=== PATIENT | female | born 1960 | race Caucasian/White ===

== ENCOUNTER 2016-06-10 18:07 | Emergency (ER) | payer BC ==
--- NOTE | 2016-06-10 19:26 | ER Document Report ---
ED Medical Screen (RME) - General Stated Complaint: DIFFICULTY BREATHING Information source: Patient Notes: Patient reports cold symptoms for the past week. Patient reports hot and cold chills. Patient complains of muscle cramping to left lower extremity. No fever. Nonproductive cough. hx: Diabetes, hypertension I have greeted and performed a rapid initial assessment of this patient. A comprehensive ED assessment and evaluation of the patient, analysis of test results and completion of the medical decision making process will be conducted by additional ED providers. TRAVEL OUTSIDE OF THE [place] IN LAST 30 DAYS: No - Related Data Allergies/Adverse Reactions: No Known Allergies Allergy (Verified 11/08/13 21:58) Past Medical History - Past Medical History Cardiac Medical History: Reports: Hx Hypertension Denies: Hx Coronary Artery Disease, Hx Heart Attack Pulmonary Medical History: Denies: Hx Asthma, Hx Bronchitis, Hx COPD, Hx Pneumonia Neurological Medical History: Denies: Hx Cerebrovascular Accident, Hx Seizures Endocrine Medical History: Reports: Hx Diabetes Mellitus Type 2 Musculoskeltal Medical History: Denies Hx Arthritis Past Surgical History: Reports: Hx Section, Hx Cholecystectomy, Hx Hysterectomy. Denies: Hx Pacemaker - Immunizations Hx Diphtheria, Pertussis, Tetanus Vaccination: Yes Physical Exam - Vital signs Vitals: Temp Pulse Resp BP Pulse Ox 97.7 F 99 16 148/77 H 95 06/10/16 19:12 06/10/16 19:12 06/10/16 19:12 06/10/16 19:12 06/10/16 19:12 - Respiratory Respiratory status: No respiratory distress Breath sounds: Nonproductive cough Course - Vital Signs Vital signs: Temp Pulse Resp BP Pulse Ox 97.7 F 99 16 148/77 H 95 06/10/16 19:12 06/10/16 19:12 06/10/16 19:12 06/10/16 19:12 06/10/16 19:12
[2016-06-10] MEDS ORDERED: ASPIRIN 81 MG TABLET, CHEWABLE PO ONE (19:27)
[2016-06-10 20:26] LABS: ABSOLUTE EOSINOPHILS # (AUTO) 0.3 10^3/uL (0.0-0.6); ABSOLUTE LYMPHOCYTES (AUTO) 3.7 10^3/uL (0.5-4.7); ABSOLUTE MONOCYTES (AUTO) 0.7 10^3/uL (0.1-1.4); ABSOLUTE NEUT (AUTO) 4.4 10^3/uL (1.7-8.2); BASOPHILS % (AUTO) 0.4 % (0-2); EOSINOPHILS % (AUTO) 3.3 % (0-6); HEMATOCRIT 42.2 % (36.0-47.0); HGB HCT DIFFERENCE -0.2; LYMPHOCYTES % (AUTO) 40.4 % (13-45); MEAN CORPUSCULAR HEMOGLOBIN 29.9 pg (27.0-33.4); MEAN CORPUSCULAR HGB CONC 33.1 g/dL (32.0-36.0); MEAN CORPUSCULAR VOLUME 90 fl (80-97); MONOCYTES % (AUTO) 8.1 % (3-13); RED BLOOD COUNT 4.66 10^6/uL (3.72-5.28); RED CELL DISTRIBUTION WIDTH 13.4 % (11.5-14.0); SEGMENTED NEUTROPHILS % (AUTO) 47.8 % (42-78); WHITE BLOOD COUNT 9.1 10^3/uL (4.0-10.5)
[2016-06-10 20:31] LABS: APPEARANCE,URINE SLIGHTLY-CLOUDY; BILIRUBIN,URINE NEGATIVE (NEGATIVE); GLUCOSE, URINE >=500 mg/dL (NEGATIVE); KETONES,URINE NEGATIVE (NEGATIVE); LEUKOCYTE ESTERASE,URINE TRACE (NEGATIVE); NITRITE,URINE POSITIVE (NEGATIVE); PROTEIN,URINE NEGATIVE (NEGATIVE); URINE SPECIFIC GRAVITY 1.022; UROBILINOGEN,URINE NEGATIVE mg/dL (<2.0)
[2016-06-10 20:42] LABS: ALANINE AMINOTRANSFERASE 42 U/L (9-52); ALBUMIN 4.1 g/dL (3.5-5.0); ALKALINE PHOSPHATASE 105 U/L (38-126); ANION GAP 12 (5-19); ASPARTATE AMINO TRANSFERASE 24 U/L (14-36); BILIRUBIN,TOTAL 0.5 mg/dL (0.2-1.3); BLOOD UREA NITROGEN 19 mg/dL (7-20); CALCIUM 10.8 mg/dL (8.4-10.2); CARBON DIOXIDE 28 mmol/L (22-30); CHLORIDE 100 mmol/L (98-107); CREATINE KINASE 184 U/L (30-135); GLUCOSE 247 mg/dL (75-110); MAGNESIUM 1.6 mg/dL (1.6-2.3); POTASSIUM 4.4 mmol/L (3.6-5.0); SODIUM 140.3 mmol/L (137-145); TOTAL PROTEIN 7.5 g/dL (6.3-8.2)
[2016-06-10 20:54] LABS: CREATINE KINASE MB 3.33 ng/mL (<4.55); TROPONIN I < 0.012 ng/mL
--- NOTE | 2016-06-10 23:58 | ER Document Report ---
ED General - General Mode of Arrival: Ambulatory Information source: Patient TRAVEL OUTSIDE OF THE [place] IN LAST 30 DAYS: No - HPI Patient complains to provider of: Leg Cramping Onset: Other - approximately 3 days ago Onset/Duration: Sudden, Intermittent Quality of pain: Cramping Associated symptoms: Nonproductive cough <BERNA POWELL - Last Filed: 06/11/16 01:31> <BHAVIK CHURCHILL - Last Filed: 06/11/16 04:35> - General Chief Complaint: Leg Pain Stated Complaint: DIFFICULTY BREATHING Notes: Patient is a 55 y/o diabetic female presenting to the emergency department concerned of intermittent bilateral leg cramping onset approximately 3 days ago. Patient states the cramping is in her thigh and calf of her left leg, and just the calf in her right leg. 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 Patient denies any urinary symptoms or any new activity. Patient believes that she has been drinking enough fluids. (BERNA POWELL) - Related Data Allergies/Adverse Reactions: No Known Allergies Allergy (Verified 11/08/13 21:58) Past Medical History - General Information source: Patient - Social History Smoking Status: Unknown if Ever Smoked Lives with: Spouse/Significant other Family History: Reviewed & Not Pertinent Patient has suicidal ideation: No Patient has homicidal ideation: No - Past Medical History Cardiac Medical History: Reports: Hx Hypertension Endocrine Medical History: Reports: Hx Diabetes Mellitus Type 2 Past Surgical History: Reports: Hx Section, Hx Cholecystectomy, Hx Hysterectomy - Immunizations Hx Diphtheria, Pertussis, Tetanus Vaccination: Yes <BERNA POWELL - Last Filed: 06/11/16 01:31> Review of Systems - Review of Systems Constitutional: No symptoms reported EENT: No symptoms reported Cardiovascular: No symptoms reported Respiratory: No symptoms reported Gastrointestinal: No symptoms reported Genitourinary: No symptoms reported Female Genitourinary: No symptoms reported Musculoskeletal: See HPI, Other - Cramping in legs bilaterally. Skin: No symptoms reported Hematologic/Lymphatic: No symptoms reported Neurological/Psychological: No symptoms reported -: Yes All other systems reviewed and negative <BERNA POWELL - Last Filed: 06/11/16 01:31> Physical Exam - General General appearance: Alert - HEENT Head: Normocephalic, Atraumatic Eyes: Normal Pupils: PERRL - Respiratory Respiratory status: No respiratory distress Chest status: Nontender Breath sounds: Normal Chest palpation: Normal - Cardiovascular Rhythm: Regular Heart sounds: Normal auscultation Murmur: No - Abdominal Inspection: Obese Distension: No distension Bowel sounds: Normal Tenderness: Nontender Organomegaly: No organomegaly - Back Back: Normal, Nontender - Extremities General upper extremity: Normal inspection, Nontender, Normal color, Normal ROM , Normal temperature General lower extremity: Tender - Tenderness to palpation over upper posterior left calf and medial left proximal thigh., Normal ROM. No: Edema - Neurological Neuro grossly intact: Yes Cognition: Normal [place] Coma Scale Eye Opening: Spontaneous [place] Coma Scale Verbal: Oriented [place] Coma Scale Motor: Obeys Commands [place] Coma Scale Total: 15 Speech: Normal - Psychological Associated symptoms: Normal affect, Normal mood - Skin Skin Temperature: Warm Skin Moisture: Dry Skin Color: Normal <BERNA POWELL - Last Filed: 06/11/16 01:31> Course - Laboratory Result Diagrams: 06/10/16 19:30 06/10/16 19:30 <BERNA POWELL - Last Filed: 06/11/16 01:31> - Laboratory Result Diagrams: 06/10/16 19:30 06/10/16 19:30 - Diagnostic Test Radiology reviewed: Reports reviewed <BHAVIK CHURCHILL - Last Filed: 06/11/16 04:35> - Re-evaluation Re-evalutation: 06/10 Patient is a 55-year-old female who comes in complaining of leg pain. Patient was going to leave after being seen in triage. Asked to see the patient who states that she has had some pain in her left calf and thigh. Blood work is within normal limits. Patient denies any cough, difficulty breathing, or any other complaints. Concerning for DVT. Patient has been given a prescription for an outpatient Doppler as I cannot obtain one at this time of night. Patient will likely be sent back to the ER to be started on blood thinners if she has a DVT. Understands and agrees with this plan. Patient like to go home. She will return for her Doppler in the morning. Stable for discharge. Return immediately for any worsening or concerning symptoms. Of note, the patient does not want to be started prophylactically on blood thinners unless she really needs them. (BHAVIK CHURCHILL) - Vital Signs Vital signs: Temp Pulse Resp BP Pulse Ox 97.7 F 99 16 148/77 H 95 06/10/16 19:12 06/10/16 19:12 06/10/16 19:12 06/10/16 19:12 06/10/16 19:12 (BERNA POWELL) (BHAVIK CHURCHILL) - Laboratory Laboratory results interpreted by me: 06/10/16 06/10/16 19:30 19:35 Glucose 247 H Calcium 10.8 H Creatine Kinase 184 H Urine Glucose (UA) >=500 H Urine Nitrite POSITIVE H Ur Leukocyte Esterase TRACE H (BERNA POWELL) (BHAVIK CHURCHILL) Discharge <BERNA POWELL - Last Filed: 06/11/16 01:31> <BHAVIK CHURCHILL - Last Filed: 06/11/16 04:35> - Discharge Clinical Impression: Leg pain, left Condition: Stable Disposition: HOME, SELF-CARE Instructions: Possible Evolving Leg DVT ([facility]), Leg Cramps ([facility]), Leg Pain Nonspecific ([facility]) Additional Instructions: Please follow-up with your doctor. Please get a Doppler of your leg tomorrow. Forms: Follow-Up Radiology Testing, Return to Work Scribe Attestation: 06/11/16 04:35 I personally performed the services described in the documentation, reviewed and edited the documentation which was dictated to the scribe in my presence, and it accurately records my words and actions. (BHAVIK CHURCHILL) Scribe Documentation - Scribe Written by Scribe:: Berna Powell 06/10/2016 [id number] acting as scribe for :: Corina <BERNA POWELL - Last Filed: 06/11/16 01:31>
[2016-06-11 06:22] VITALS: BP 139/77
== END 2016-06-11 00:16 | disposition home or self-care (01) ==
LOC: ER 18:07
DX: M79.662 Pain in left lower leg (principal); M79.652 Pain in left thigh; R25.2 Cramp and spasm; I10 Essential (primary) hypertension; E11.9 Type 2 diabetes mellitus without complications
CPT/HCPCS: 36415; 71020; 80053; 81001; 82550; 82553; 83735; 84484; 85025; 99283

== ENCOUNTER → 2016-06-11 | Outpatient (CLI) | payer BC | LOC: SP 10:11 | PROVIDERS: ATTEND Emergency Medicine | DX: M79.662 Pain in left lower leg (principal) | CPT/HCPCS: 93971 ==

== ENCOUNTER 2016-07-04 12:27 | Emergency (ER) | payer BC ==
[2016-07-04] MEDS ORDERED: ASPIRIN 81 MG TABLET, CHEWABLE PO ONE (12:40)
--- NOTE | 2016-07-04 12:41 | ER Document Report ---
ED Medical Screen (RME) - General Stated Complaint: CHEST PAIN Mode of Arrival: Ambulatory Information source: Patient Notes: c/o mid-sternal chest pain, non-radiating and describes the pain as "needing to burp" that has been present for the past 2 days. Also endorses fluctuations in her pulse 95-150. Endorses associate fatigue, generalized weakness but denies SOB, cough, n/v/d. She has not tried anything for the pain. She does not take a daily aspirin but did take 1 81 mg ASA this morning. Does not take blood thinners. PMHx HTN, DM, no CAD, non-smoker FamHX no HTN, +DM, +CAD I have greeted and performed a rapid initial assessment of this patient. A comprehensive ED assessment and evaluation of the patient, analysis of test results and completion of the medical decision making process will be conducted by additional ED providers. TRAVEL OUTSIDE OF THE [place] IN LAST 30 DAYS: No - Related Data Allergies/Adverse Reactions: No Known Allergies Allergy (Verified 07/04/16 12:37) Past Medical History - Past Medical History Cardiac Medical History: Reports: Hx Hypertension Denies: Hx Coronary Artery Disease, Hx Heart Attack Pulmonary Medical History: Denies: Hx Asthma, Hx Bronchitis, Hx COPD, Hx Pneumonia Neurological Medical History: Denies: Hx Cerebrovascular Accident, Hx Seizures Endocrine Medical History: Reports: Hx Diabetes Mellitus Type 2 Renal/ Medical History: Denies: Hx Peritoneal Dialysis Musculoskeltal Medical History: Denies Hx Arthritis Past Surgical History: Reports: Hx Section, Hx Cholecystectomy, Hx Hysterectomy. Denies: Hx Pacemaker - Immunizations Hx Diphtheria, Pertussis, Tetanus Vaccination: Yes Physical Exam - Vital signs Vitals: Temp Pulse Resp BP Pulse Ox 97.8 F 112 H 16 141/77 H 95 07/04/16 12:37 07/04/16 12:37 07/04/16 12:37 07/04/16 12:37 07/04/16 12:37 - Notes Notes: tachycardic heart rate (111-115) Lungs CTAB without wheezing Course - Vital Signs Vital signs: Temp Pulse Resp BP Pulse Ox 97.8 F 112 H 16 141/77 H 95 07/04/16 12:37 07/04/16 12:37 07/04/16 12:37 07/04/16 12:37 07/04/16 12:37
[2016-07-04 13:02] LABS: ABSOLUTE BASOPHILS # (AUTO) 0.1 10^3/uL (0.0-0.2); ABSOLUTE EOSINOPHILS # (AUTO) 0.3 10^3/uL (0.0-0.6); ABSOLUTE LYMPHOCYTES (AUTO) 2.8 10^3/uL (0.5-4.7); ABSOLUTE MONOCYTES (AUTO) 0.7 10^3/uL (0.1-1.4); ABSOLUTE NEUT (AUTO) 5.1 10^3/uL (1.7-8.2); BASOPHILS % (AUTO) 0.7 % (0-2); EOSINOPHILS % (AUTO) 3.6 % (0-6); HEMOGLOBIN 13.9 g/dL (12.0-15.5); HGB HCT DIFFERENCE 0.7; LYMPHOCYTES % (AUTO) 31.1 % (13-45); MEAN CORPUSCULAR HEMOGLOBIN 30.4 pg (27.0-33.4); MEAN CORPUSCULAR HGB CONC 33.9 g/dL (32.0-36.0); MEAN CORPUSCULAR VOLUME 90 fl (80-97); MONOCYTES % (AUTO) 7.7 % (3-13); RED BLOOD COUNT 4.57 10^6/uL (3.72-5.28); RED CELL DISTRIBUTION WIDTH 12.9 % (11.5-14.0); SEGMENTED NEUTROPHILS % (AUTO) 56.9 % (42-78)
[2016-07-04 13:26] LABS: ALANINE AMINOTRANSFERASE 43 U/L (9-52); ALBUMIN 4.2 g/dL (3.5-5.0); ALKALINE PHOSPHATASE 89 U/L (38-126); ANION GAP 12 (5-19); ASPARTATE AMINO TRANSFERASE 25 U/L (14-36); BILIRUBIN,TOTAL 0.7 mg/dL (0.2-1.3); BLOOD UREA NITROGEN 16 mg/dL (7-20); CALCIUM 11.2 mg/dL (8.4-10.2); CARBON DIOXIDE 27 mmol/L (22-30); CHLORIDE 101 mmol/L (98-107); CREATINE KINASE 91 U/L (30-135); CREATININE RESULT 0.69 mg/dL (0.52-1.25); GLUCOSE 267 mg/dL (75-110); POTASSIUM 4.8 mmol/L (3.6-5.0); SODIUM 139.9 mmol/L (137-145); TOTAL PROTEIN 7.1 g/dL (6.3-8.2)
[2016-07-04 13:34] LABS: CREATINE KINASE MB 2.95 ng/mL (<4.55)
[2016-07-04 13:35] LABS: TROPONIN I < 0.012 ng/mL
[2016-07-04] MEDS ORDERED: NORMAL SALINE 1000 ML 1,000 ML IV ONE (13:43)
[2016-07-04 13:48] LABS: APPEARANCE,URINE SLIGHTLY-CLOUDY; BILIRUBIN,URINE NEGATIVE (NEGATIVE); GLUCOSE, URINE >=500 mg/dL (NEGATIVE); KETONES,URINE NEGATIVE (NEGATIVE); LEUKOCYTE ESTERASE,URINE NEGATIVE (NEGATIVE); NITRITE,URINE NEGATIVE (NEGATIVE); PROTEIN,URINE NEGATIVE (NEGATIVE); URINE SPECIFIC GRAVITY 1.016; UROBILINOGEN,URINE NEGATIVE mg/dL (<2.0)
[2016-07-04 14:07] LABS: URINE BARBITURATES SCREEN NEGATIVE; URINE METHADONE SCREEN NEGATIVE; URINE OPIATES LOW NEGATIVE; URINE PHENCYCLIDINE SCREEN NEGATIVE
[2016-07-04 14:43] LABS: THYROID STIMULATING HORMONE 1.34 uIU/mL (0.47-4.68)
--- NOTE | 2016-07-04 15:36 | ER Document Report ---
ED General - General Chief Complaint: Chest Pain > 30 Stated Complaint: CHEST PAIN Mode of Arrival: Ambulatory TRAVEL OUTSIDE OF THE [place] IN LAST 30 DAYS: No - HPI Patient complains to provider of: chest pain tachycardia generalized fatigue Notes: Patient coming in with above stated symptoms ongoing for approximately a week. Patient states she was evaluated local urgent care and sent to the ER for further evaluation. Patient denies any changes the medication additionally take states she is a diabetic compliant with her insulin and metformin. Denies any recent travel denies any recent antibiotics denies any sick contacts. Patient also denies any trauma. Patient states increased stress over the last week or 2 with increase of the states that while she was at the urgent care this to have a heart rate of 150. Patient states chest pain right-sided to substernal worse with palpation. Patient currently is resting comfortably with no complaints. - Related Data Allergies/Adverse Reactions: No Known Allergies Allergy (Verified 07/04/16 12:37) Past Medical History - General Information source: Patient - Social History Smoking Status: Never Smoker Chew tobacco use (# tins/day): No Frequency of alcohol use: None Drug Abuse: None Family History: Reviewed & Not Pertinent Patient has suicidal ideation: No Patient has homicidal ideation: No - Past Medical History Cardiac Medical History: Reports: Hx Hypertension Denies: Hx Coronary Artery Disease, Hx Heart Attack Pulmonary Medical History: Denies: Hx Asthma, Hx Bronchitis, Hx COPD, Hx Pneumonia Neurological Medical History: Denies: Hx Cerebrovascular Accident, Hx Seizures Endocrine Medical History: Reports: Hx Diabetes Mellitus Type 2 Renal/ Medical History: Denies: Hx Peritoneal Dialysis Musculoskeltal Medical History: Denies Hx Arthritis Past Surgical History: Reports: Hx Section, Hx Cholecystectomy, Hx Hysterectomy. Denies: Hx Pacemaker - Immunizations Hx Diphtheria, Pertussis, Tetanus Vaccination: Yes Review of Systems - Review of Systems Constitutional: No symptoms reported EENT: No symptoms reported Cardiovascular: Chest pain Respiratory: No symptoms reported Gastrointestinal: No symptoms reported Genitourinary: No symptoms reported Female Genitourinary: No symptoms reported Musculoskeletal: No symptoms reported Skin: No symptoms reported Hematologic/Lymphatic: No symptoms reported Neurological/Psychological: No symptoms reported -: Yes All other systems reviewed and negative Physical Exam - Vital signs Vitals: Temp Pulse Resp BP Pulse Ox 97.8 F 112 H 16 141/77 H 95 07/04/16 12:37 07/04/16 12:37 07/04/16 12:37 07/04/16 12:37 07/04/16 12:37 Interpretation: Normal - General General appearance: Appears well, Alert - HEENT Head: Normocephalic, Atraumatic Eyes: Normal Pupils: PERRL - Respiratory Respiratory status: No respiratory distress Chest status: Tender Breath sounds: Normal Chest palpation: Normal - Cardiovascular Rhythm: Regular Heart sounds: Normal auscultation Murmur: No - Abdominal Inspection: Normal Distension: No distension Bowel sounds: Normal Tenderness: Nontender Organomegaly: No organomegaly - Back Back: Normal, Nontender - Extremities General upper extremity: Normal inspection, Nontender, Normal color, Normal ROM , Normal temperature General lower extremity: Normal inspection, Nontender, Normal color, Normal ROM , Normal temperature, Normal weight bearing. No: Eli's sign - Neurological Neuro grossly intact: Yes Cognition: Normal Orientation: AAOx4 [place] Coma Scale Eye Opening: Spontaneous [place] Coma Scale Verbal: Oriented [place] Coma Scale Motor: Obeys Commands [place] Coma Scale Total: 15 Speech: Normal Motor strength normal: LUE, RUE, LLE, RLE Sensory: Normal - Psychological Associated symptoms: Normal affect, Normal mood - Skin Skin Temperature: Warm Skin Moisture: Dry Skin Color: Normal Course - Re-evaluation Re-evalutation: 07/04/16 19:48 This labwork shows no acute pathology. D-dimer negative troponin negative EKG does not show any signs of arrhythmias. Patient has normal thyroid studies encouraged patient to follow-up with cardiology and PCP. Patient agrees patient was discharged home. - Vital Signs Vital signs: Temp Pulse Resp BP Pulse Ox 97.9 F 95 16 145/87 H 100 07/04/16 15:49 07/04/16 14:14 07/04/16 17:01 07/04/16 17:01 07/04/16 17:01 - Laboratory Result Diagrams: 07/04/16 12:45 07/04/16 12:45 Laboratory results interpreted by me: 07/04/16 07/04/16 12:45 13:25 Glucose 267 H Calcium 11.2 H Urine Glucose (UA) >=500 H Urine Ascorbic Acid 20 H Discharge - Discharge Clinical Impression: Chest wall pain, elevated heart rate Condition: Good Disposition: HOME, SELF-CARE Instructions: Chest Wall Pain ([facility]), Anti-Inflammatory Medication ([facility]), Palpitations (Irregular or Rapid Heartrate) ([facility]) Additional Instructions: Your labwork shows no critical etiology for your symptoms today. No signs of heart attack no signs of blood clots in your lungs no signs of infection. Your thyroid studies were also normal. I would follow-up with your primary care physician for possible referral to a service dismantler. Also follow-up with your primary care physician for further evaluation and testing. Return to ER due to change in her symptoms aren't your symptoms worsen Prescriptions: Ibuprofen [Motrin 600 Mg Tablet] 600 mg PO TID #30 tablet Forms: Return to Work Referrals: DENNIS GRANT MD [ACTIVE STAFF] - Follow up as needed RYAN MORA MD [ACTIVE STAFF] - Follow up as needed
[2016-07-04 17:18] VITALS: BP 145/87
--- NOTE | 2016-07-05 09:17 | EKG REPORT ---
SEVERITY:- OTHERWISE NORMAL ECG - SINUS TACHYCARDIA : Confirmed by: Ghanshyam Land MD 05-Jul-2016 09:16:57
== END 2016-07-04 17:18 | disposition home or self-care (01) ==
LOC: ER 12:27
DX: R07.89 Other chest pain (principal); R00.0 Tachycardia, unspecified; R53.83 Other fatigue; I10 Essential (primary) hypertension; E11.9 Type 2 diabetes mellitus without complications; Z79.4 Long term (current) use of insulin; Z79.84 Long term (current) use of oral hypoglycemic drugs
CPT/HCPCS: 93005; 99285; 96360; 36415; 84439; 82553; 82550; 83690; 83735; 84443; 85025; 80053; 81001; 84484; 80307; 85379; 71010; 93010; J7030

== ENCOUNTER 2017-10-14 21:40 | Emergency (ER) | payer BC ==
[2017-10-14 22:44] VITALS: BP 140/67
[2017-10-14] MEDS ORDERED: ACYCLOVIR 800 MG TABLET PO ONE (23:30)
[2017-10-14] MEDS ORDERED: PREDNISONE 20 MG TABLET PO ONE (23:30)
[2017-10-14] MEDS ORDERED: ACETAMINOPHEN 325 MG TABLET PO ONE (23:33)
[2017-10-14] MEDS ORDERED: IBUPROFEN 800 MG TABLET PO ONE (23:33)
--- NOTE | 2017-10-14 23:33 | ER Document Report ---
HPI - HPI Pain Level: 5 Context: Patient is a 57-year-old female presents emergency room with a chief complaint of burning for the past 2 weeks and a rash along the bra line on her right side for the past 3 days. She describes it as a sharp burning pain - CONSTITUTIONAL Constitutional: DENIES: Fever, Chills - EENT EENT: DENIES: Sore Throat, Ear Pain, Eye problems - CARDIOVASCULAR Cardiovascular: DENIES: Chest pain - RESPIRATORY Respiratory: DENIES: Trouble Breathing, Coughing - GASTROINTESTINAL Gastrointestinal: DENIES: Abdominal Pain, Black / Bloody Stools - URINARY Urinary: DENIES: Dysuria, Urgency, Frequency - REPRODUCTIVE Reproductive: DENIES: : - MUSCULOSKELETAL Musculoskeletal: DENIES: Extremity pain Past Medical History - Social History Smoking Status: Unknown if Ever Smoked Family History: Reviewed & Not Pertinent Patient has suicidal ideation: No Patient has homicidal ideation: No - Past Medical History Cardiac Medical History: Reports: Hx Hypertension Denies: Hx Coronary Artery Disease, Hx Heart Attack Pulmonary Medical History: Denies: Hx Asthma, Hx Bronchitis, Hx COPD, Hx Pneumonia Neurological Medical History: Denies: Hx Cerebrovascular Accident, Hx Seizures Endocrine Medical History: Reports: Hx Diabetes Mellitus Type 2 Renal/ Medical History: Denies: Hx Peritoneal Dialysis Musculoskeltal Medical History: Denies Hx Arthritis Past Surgical History: Reports: Hx Section, Hx Cholecystectomy, Hx Hysterectomy. Denies: Hx Pacemaker - Immunizations Hx Diphtheria, Pertussis, Tetanus Vaccination: Yes Vertical Provider Document - CONSTITUTIONAL Agree With Documented VS: Yes Notes: PHYSICAL EXAM GENERAL: Alert, interacts well. LUNGS: Clear to auscultation bilaterally, no wheezes, rales, or rhonchi. No respiratory distress. HEART: Regular rate and rhythm. No murmurs, gallops, or rubs. ABDOMEN: Soft, nondistended, nontender. No guarding, rebound, or rigidity.. Bowel sounds present in all 4 quadrants. EXTREMITIES: Moves all 4 extremities spontaneously. No edema, radial and dorsalis pedis pulses 2/4 bilaterally. No cyanosis. NEUROLOGICAL: Alert and oriented x4. Normal speech. PSYCH: Normal affect, normal mood. SKIN: Warm, dry, normal turgor. Patient presents with a cluster of vesicles that are tender on an erythematous base along the patient's bra line on the right side - INFECTION CONTROL TRAVEL OUTSIDE OF THE [place] IN LAST 30 DAYS: No Course - Re-evaluation Re-evalutation: 10/14/17 23:32 Patient is a 57-year-old female presents emergency department with symptoms consistent with shingles. Site is isolated to right chest wall without any evidence of associated secondary infection or cellulitis. Patient to be initiated on antivirals and prednisone and to follow-up with primary care. Did review strict return precautions and stable for discharge home - Vital Signs Vital signs: Temp Pulse Resp BP Pulse Ox 97.9 F 86 20 140/67 H 95 10/14/17 22:43 10/14/17 22:43 10/14/17 22:43 10/14/17 22:43 10/14/17 22:43 Discharge - Discharge Clinical Impression: Shingles Qualifiers: Herpes zoster complications: unspecified herpes zoster complication Qualified Code(s): B02.8 - Zoster with other complications Condition: Good Disposition: HOME, SELF-CARE Instructions: Shingles ([facility]) Prescriptions: Acyclovir 800 mg PO QID 5 Days tablet Prednisone [Deltasone 20 mg Tablet] 3 tab PO DAILY 7 Days tablet Referrals: JARED KRISHNAMURTHY MD [COMMUNITY BASED STAFF] - Follow up in 1 week
== END 2017-10-14 23:53 | disposition home or self-care (01) ==
LOC: ER 21:40
DX: B02.8 Zoster with other complications (principal)
CPT/HCPCS: 99282; J7512

== ENCOUNTER 2018-02-21 20:26 | Emergency (ER) | payer BC ==
[2018-02-21 20:35] VITALS: BP 178/82
--- NOTE | 2018-02-21 23:22 | RADIOLOGY REPORT (SQ) ---
Left knee four views HISTORY: Left knee pain. FINDINGS: Bony alignment is anatomic. No fracture or dislocation. No significant joint effusion. IMPRESSION: No fracture.
--- NOTE | 2018-02-21 23:22 | RADIOLOGY REPORT (SQ) ---
Left femur two views HISTORY: Left leg pain. FINDINGS: bony alignment is anatomic. No fracture or dislocation. Soft tissues are unremarkable. IMPRESSION: No fracture.
--- NOTE | 2018-02-21 23:26 | ER Document Report ---
HPI - HPI Patient complains to provider of: left knee pain Pain Level: 5 Context: Patient is a 57-year-old female presenting to the emergency department complaining of left knee pain. Patient states she has tripped and fallen twice in the last 2 weeks. Denies getting lightheaded or dizzy at any point in time states she just tripped on the rug. Patient states she has had increased pain in her left knee radiating up to her left hip. Patient states she has been able to bear weight on the left leg but has had increased pain. Patient states she was recently to the breeder hen service technician due to cysts in the bottom of her left feet. Inside Bar[employer]isher recommended shoe insoles and patient states the pain in her left foot has since resolved. Patient denies left hip or ankle pain. Past medical history: Diabetes, ulcerative colitis Medications: Lantus Allergies: None Surgical history: None Patient denies cigarette smoking, EtOH use, illicit drug use. - REPRODUCTIVE Reproductive: DENIES: : - MUSCULOSKELETAL Musculoskeletal: REPORTS: Extremity pain - LLE Past Medical History - General Information source: Patient - Social History Smoking Status: Never Smoker Lives with: Family Family History: Reviewed & Not Pertinent Patient has suicidal ideation: No Patient has homicidal ideation: No - Past Medical History Cardiac Medical History: Reports: Hx Hypertension Denies: Hx Coronary Artery Disease, Hx Heart Attack Pulmonary Medical History: Denies: Hx Asthma, Hx Bronchitis, Hx COPD, Hx Pneumonia Neurological Medical History: Denies: Hx Cerebrovascular Accident, Hx Seizures Endocrine Medical History: Reports: Hx Diabetes Mellitus Type 2 Renal/ Medical History: Denies: Hx Peritoneal Dialysis Musculoskeletal Medical History: Denies Hx Arthritis Past Surgical History: Reports: Hx Section, Hx Cholecystectomy, Hx Hysterectomy. Denies: Hx Pacemaker - Immunizations Hx Diphtheria, Pertussis, Tetanus Vaccination: Yes Vertical Provider Document - CONSTITUTIONAL Notes: GENERAL: Alert, interacts well. No acute distress. HEAD: Normocephalic, atraumatic. EYES: Pupils equal, round, and reactive to light. Extraocular movements intact. ENT: Oral mucosa moist, tongue midline. NECK: Full range of motion. Supple. Trachea midline. LUNGS: Clear to auscultation bilaterally, no wheezes, rales, or rhonchi. No respiratory distress. HEART: Regular rate and rhythm. No murmur ABDOMEN: Soft, non-tender. Non-distended. Bowel sounds present in all 4 quadrants. EXTREMITIES: Moves all 4 extremities spontaneously. No edema, normal radial and dorsalis pedis pulses bilaterally. No cyanosis. Minor swelling left knee with minor ecchymosis noted. pain upon palpation at left patella, positive pain with valgus stress test no pain with varus stress test, no anterior draw discomfort. Bony pain tenderness upon palpation to medial femur. No pain palpation left ASIS or left ankle. BACK: no cervical, thoracic, lumbar midline tenderness. No saddle anesthesia, normal distal neurovascular exam. NEUROLOGICAL: Alert and oriented x3. Normal speech. cranial nerves II through XII grossly intact. PSYCH: Normal affect, normal mood. SKIN: Warm, dry, normal turgor. No rashes or lesions noted. - INFECTION CONTROL TRAVEL OUTSIDE OF THE [place] IN LAST 30 DAYS: No Course - Re-evaluation Re-evalutation: 02/21/18 23:24 X-rays of left knee are negative at this point. Patient wishes to decline in the immobilizer and crutches. States she has been been walking on the knee since the first fall 2 weeks ago. Patient states she will follow-up with orthopedics for continued care. Dr. Bryant's number will be given. Timo wrap will be applied. Discussed RICE with patient. - Vital Signs Vital signs: Temp Pulse Resp BP Pulse Ox 98.1 F 97 16 178/82 H 96 02/21/18 20:34 02/21/18 20:34 02/21/18 20:34 02/21/18 20:34 02/21/18 20:34 Discharge - Discharge Clinical Impression: Knee injury Qualifiers: Encounter type: initial encounter Laterality: left Qualified Code(s): S89.92XA - Unspecified injury of left lower leg, initial encounter Condition: Stable Disposition: HOME, SELF-CARE Instructions: Knee Immobilizing Splint ([facility]) Additional Instructions: As we discussed your x-ray showed no signs of fractures at this time. You must follow-up with orthopedics for continued care. Return to the emergency room for any other concerning symptoms. Referrals: BENI LEDESMA MD [ACTIVE STAFF] - Follow up as needed
== END 2018-02-21 23:44 | disposition home or self-care (01) ==
LOC: ER 20:26
DX: S89.92XA Unspecified injury of left lower leg, initial encounter (principal); W01.0XXA Fall on same level from slipping, tripping and stumbling without subsequent striking against object, initial encounter; I10 Essential (primary) hypertension; E11.9 Type 2 diabetes mellitus without complications; Z91.81 History of falling; Z90.710 Acquired absence of both cervix and uterus; Z90.49 Acquired absence of other specified parts of digestive tract
CPT/HCPCS: 99283

== ENCOUNTER 2018-03-11 08:11 | Day surgery (SDC) | payer BC ==
[2018-03-10 10:12] LABS: HEMATOCRIT 40.9 % (36.0-47.0); HEMOGLOBIN 14.1 g/dL (12.0-15.5); MEAN CORPUSCULAR HGB CONC 34.4 g/dL (32.0-36.0); MEAN CORPUSCULAR VOLUME 90 fl (80-97); PLATELET COUNT 280 10^3/uL (150-450); RED BLOOD COUNT 4.54 10^6/uL (3.72-5.28); RED CELL DISTRIBUTION WIDTH 13.1 % (11.5-14.0); WHITE BLOOD COUNT 9.8 10^3/uL (4.0-10.5)
[2018-03-10 10:23] LABS: APPEARANCE,URINE TURBID; BILIRUBIN,URINE NEGATIVE (NEGATIVE); COLOR,URINE AMBER; GLUCOSE, URINE NEGATIVE (NEGATIVE); KETONES,URINE NEGATIVE (NEGATIVE); LEUKOCYTE ESTERASE,URINE LARGE (NEGATIVE); NITRITE,URINE NEGATIVE (NEGATIVE); PROTEIN,URINE 30 mg/dL (NEGATIVE); URINE SPECIFIC GRAVITY 1.024; UROBILINOGEN,URINE NEGATIVE mg/dL (<2.0)
[2018-03-10 10:44] LABS: ANION GAP 13 (5-19); BLOOD UREA NITROGEN 11 mg/dL (7-20); CARBON DIOXIDE 29 mmol/L (22-30); CHLORIDE 102 mmol/L (98-107); GLUCOSE 101 mg/dL (75-110); POTASSIUM 4.5 mmol/L (3.6-5.0); SODIUM 143.7 mmol/L (137-145)
--- NOTE | 2018-03-10 13:21 | EKG REPORT ---
SEVERITY:- OTHERWISE NORMAL ECG - SINUS TACHYCARDIA : Confirmed by: Ghanshyam Land MD 10-Mar-2018 13:20:42
--- NOTE | 2018-03-10 16:42 | RADIOLOGY REPORT (SQ) ---
EXAM DESCRIPTION: CHEST PA/LATERAL COMPLETED DATE/TIME: 03/10/2018 3:58 pm REASON FOR STUDY: PRE-OP COMPARISON: None. EXAM PARAMETERS: NUMBER OF VIEWS: two views TECHNIQUE: Digital Frontal and Lateral radiographic views of the chest acquired. RADIATION DOSE: NA LIMITATIONS: none FINDINGS: LUNGS AND PLEURA: No opacities, masses or pneumothorax. No pleural effusion. MEDIASTINUM AND HILAR STRUCTURES: No masses or contour abnormalities. HEART AND VASCULAR STRUCTURES: Heart normal size. No evidence for failure. BONES: No acute findings. HARDWARE: None in the chest. OTHER: No other significant finding. IMPRESSION: NO SIGNIFICANT RADIOGRAPHIC FINDING IN THE CHEST. TECHNICAL DOCUMENTATION: JOB ID: [id number] [employer]- All Rights Reserved Reading location - IP/workstation name: [email or web address]
[~2018-03-11 08:11] MED LIST: CEFAZOLIN 2 GM/D5W RTU 2 GM/50 ML RTUPB IV PRN; LACTATED RINGERS 1000 ML IV PRN; LIDOCAINE 0.5% INJ-PF (5 MG/ML) 50 ML SDV SUBCUT PRN
[2018-03-11] MEDS ORDERED: CEFAZOLIN 2 GM/D5W RTU 2 GM/50 ML RTUPB IV ONE (08:15)
[2018-03-11] MEDS ORDERED: BUPIVACAINE HCL 0.5 % INJ/PF 30 ML SDV ONE (09:17)
[2018-03-11] MEDS ORDERED: LIDOCAINE 1%/EPINEPHRINE INJ 20 ML VIAL ONE (09:18)
[2018-03-11] MEDS ORDERED: EPHEDRINE SULFATE INJ 50 MG/1 ML AMPULE ONE (10:17)
[2018-03-11] MEDS ORDERED: FENTANYL CITRATE INJ/PF 100 MCG/2 ML AMPUL ONE (10:17)
[2018-03-11] MEDS ORDERED: DEXMEDETOMIDINE INJ 80 MCG/20 ML VIAL IV ONE (10:18)
[2018-03-11] MEDS ORDERED: ONDANSETRON HCL INJ/PF 4 MG/2 ML SDV ONE (10:18)
[2018-03-11] MEDS ORDERED: PROPOFOL INJ 200 MG/20 ML VIAL IV ONE (10:18)
[2018-03-11] MEDS ORDERED: DEXAMETHASONE SOD PHOSPHATE INJ 4 MG/1 ML VIAL ONE (10:18)
[2018-03-11] MEDS ORDERED: ACETAMINOPHEN 1,000 MG/100 ML RTUPB IV ONE (10:18)
[2018-03-11] MEDS ORDERED: MIDAZOLAM 2 MG/2 ML INJ ONE (10:19)
[2018-03-11] MEDS ORDERED: ONDANSETRON HCL INJ/PF 4 MG/2 ML SDV IV PRN (10:48)
[2018-03-11] MEDS ORDERED: MEPERIDINE HCL/PF INJ 25 MG/1 ML DISP.SYRIN IV PRN (10:48)
[2018-03-11] MEDS ORDERED: PROMETHAZINE HCL INJ 25 MG/1 ML VIAL IV PRN ×2 (10:48)
[2018-03-11] MEDS ORDERED: FENTANYL CITRATE INJ/PF 100 MCG/2 ML AMPUL IV PRN ×3 (10:48)
[2018-03-11] MEDS ORDERED: MORPHINE SULFATE 10 MG/ML INJ IV PRN (10:48)
[2018-03-11] MEDS ORDERED: OXYCODONE-ACETAMINOPHEN 5-325 MG TABLET PO PRN ×3 (10:48→11:33)
[2018-03-11] MEDS ORDERED: DIPHENHYDRAMINE HCL 50 MG/ML VIAL IV PRN (10:48)
--- NOTE | 2018-03-11 10:56 | Discharge Summary ---
Discharge Summary (SDC) - Discharge Final Diagnosis: Osteochondral injury left medial femoral condyle Date of Surgery: 03/11/18 Discharge Date: 03/11/18 Condition: Good Treatment or Instructions: Weightbearing as tolerated ambulation. Removed compressive wrap on Friday. Prescriptions: Oxycodone HCl/Acetaminophen [Percocet 5-325 mg Tablet] 1 tab PO Q6 #40 tablet Discharge Diet: As Tolerated, Regular Respiratory Treatments at Home: Deep Breathing/Coughing Discharge Activity: Balance Activity w/Rest, No tub bath Home Care Assistance: None Needed Report the Following to Your Physician Immediately: Shortness of Breath, Fever over 101 Degrees, Drainage-Foul Smelling
--- NOTE | 2018-03-11 10:59 | Operative Report ---
Operative Report DATE OF SURGERY: 03/11/18 PREOPERATIVE DIAGNOSIS: Left medial meniscal tear POSTOPERATIVE DIAGNOSIS: Left medial meniscal tear. 2 cm medial femoral condyle osteochondral injury. Intact ACL. 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 Intact lateral meniscus. Grade 2 chondral malacia patellofemoral compartment OPERATION: Arthroscopic partial left medial meniscectomy and microfracture of the medial femoral condyle SURGEON: YVONNE NAJERA ANESTHESIA: LMAC PROCEDURE: With the patient supine on the operative table left lower extremities prepped and draped in a sterile fashion. Knee is insufflated with accommodation Marcaine, Xylocaine, and epinephrine through medial and lateral. Portals are created and used for the arthroscope and debridements mentation. Joint is examined in systematic fashion findings as above. Using electric frequency ablation probe a partial medial meniscectomy was performed from approximately 9: 00 to 12:00 on the face of the dial. Mechanical shaver was used to debride the fibrillated cartilage at the edge of the osteochondral lesion. The exposed subchondral bone was then perforated using microfracture awls. Intra-articular pressure is decreased to ensure that the microfracture sites were bleeding which they are. At this point the instrumentation was removed. The portals reapproximation of the nylon. A sterile compressive dressing is applied. The patient's return to the PACU.
[2018-03-11 13:03] VITALS: BP 149/62
[2018-03-11] MEDS ORDERED: KETOROLAC TROMETHAMINE 60 MG/2 ML SDV ONE (15:59)
== END 2018-03-11 12:40 | disposition home or self-care (01) ==
LOC: OROUT 08:11
PROVIDERS: ATTEND Orthopaedic Surgery
DX: M23.304 Other meniscus derangements, unspecified medial meniscus, left knee (principal); M22.42 Chondromalacia patellae, left knee; I10 Essential (primary) hypertension; E11.9 Type 2 diabetes mellitus without complications; K51.90 Ulcerative colitis, unspecified, without complications; Z79.82 Long term (current) use of aspirin; Z79.84 Long term (current) use of oral hypoglycemic drugs; Z79.4 Long term (current) use of insulin; Z79.899 Other long term (current) drug therapy
CPT/HCPCS: 93005; 36415; 82962; 85027; 80048; 81001; 83036; 71046; 93010; 29881; 29879; J2250; J3490 ×2; J1100; J1885; J3010; J2405; J2704; J0690; J0131; 1400

== ENCOUNTER → 2018-08-06 | Outpatient (CLI) | payer BC ==
[2018-08-06 16:20] LABS: HEMATOCRIT 39.1 % (36.0-47.0); HEMOGLOBIN 13.2 g/dL (12.0-15.5); MEAN CORPUSCULAR HEMOGLOBIN 30.1 pg (27.0-33.4); MEAN CORPUSCULAR HGB CONC 33.7 g/dL (32.0-36.0); MEAN CORPUSCULAR VOLUME 89 fl (80-97); PLATELET COUNT 262 10^3/uL (150-450); RED BLOOD COUNT 4.37 10^6/uL (3.72-5.28); RED CELL DISTRIBUTION WIDTH 13.1 % (11.5-14.0); WHITE BLOOD COUNT 7.8 10^3/uL (4.0-10.5)
[2018-08-06 17:14] LABS: ALANINE AMINOTRANSFERASE 23 U/L (9-52); ALBUMIN 4.1 g/dL (3.5-5.0); ALKALINE PHOSPHATASE 89 U/L (38-126); ANION GAP 6 (5-19); ASPARTATE AMINO TRANSFERASE 20 U/L (14-36); BILIRUBIN,DIRECT 0.3 mg/dL (0.0-0.4); BILIRUBIN,TOTAL 0.6 mg/dL (0.2-1.3); BLOOD UREA NITROGEN 16 mg/dL (7-20); CALCIUM 10.9 mg/dL (8.4-10.2); CARBON DIOXIDE 28 mmol/L (22-30); CHLORIDE 103 mmol/L (98-107); GLUCOSE 154 mg/dL (75-110); POTASSIUM 4.5 mmol/L (3.6-5.0); SODIUM 137.4 mmol/L (137-145); TOTAL PROTEIN 6.8 g/dL (6.3-8.2)
== END ==
LOC: LAB 16:03
PROVIDERS: ATTEND Internal Medicine Gastroenterology
DX: R10.11 Right upper quadrant pain (principal)
CPT/HCPCS: 36415; 80048; 80076; 85027

== ENCOUNTER → 2018-08-20 | Outpatient (CLI) | payer BC ==
--- NOTE | 2018-08-20 11:02 | WOMENS IMAGING REPORT ---
EXAM DESCRIPTION: U/S ABDOMEN TOTAL COMPLETED DATE/TIME: 08/20/2018 8:21 am REASON FOR STUDY: R10.11 RIGHT UPPER QUADRANT PAIN R10.11 RIGHT UPPER QUADRANT PAIN COMPARISON: None. TECHNIQUE: Dynamic and static grayscale images acquired of the abdomen and recorded on PACS. Additio nal selected color Doppler and spectral images recorded. Note: Study does not meet criteria for a complete doppler/duplex scan LIMITATIONS: Gaseous distention. FINDINGS: PANCREAS: The pancreas is obscured by overlying bowel gas. LIVER: Echotexture is coarse with increased echogenicity consistent with fatty infiltration. LIVER VASCULATURE: Normal directional flow of the main portal vein and hepatic veins. GALLBLADDER: Surgically absent. ULTRASOUND-DETECTED FERNANDES'S SIGN: Negative. INTRAHEPATIC DUCTS AND COMMON DUCT: CBD and intrahepatic ducts normal caliber. No filling defects. INFERIOR VENA CAVA: Obscured by overlying bowel gas. AORTA: Obscured by overlying bowel gas. RIGHT KIDNEY: Normal size. Normal echogenicity. No solid or suspicious masses. No hydronephrosis. No calcifications. LEFT KIDNEY: Normal size. Normal echogenicity. No solid or suspicious masses. No hydronephrosis. No calcifications. SPLEEN:Normal size. No solid masses. PERITONEAL AND PLEURAL SPACES: No ascites or effusions. OTHER: No other significant finding. IMPRESSION: Fatty liver. Prior cholecystectomy. No acute findings. The study is limited due to ov erlying bowel gas. TECHNICAL DOCUMENTATION: JOB ID: [id number] [employer]- All Rights Reserved Reading location - IP/workstation name: [email or web address]
== END ==
LOC: WI 07:38
PROVIDERS: ATTEND Internal Medicine Gastroenterology
DX: R10.11 Right upper quadrant pain (principal)
CPT/HCPCS: 76700